=== PATIENT | female | born 1960 | race Caucasian/White ===

== ENCOUNTER 2023-04-07 23:16 | Inpatient (IN) | payer BC ==
[~2023-04-07] VITALS: Ht 167.6 cm; Wt 122.5 kg
[2023-04-08] VITALS (14 sets, daily range): BP systolic 82–128; BP diastolic 34–80; PULSE 44–100; RESP 14–26; TEMP 97.6–99; O2SAT 90–99
[2023-04-08] MEDS ORDERED: NS 1000ML 1,000 ML IV STA ×4 (00:45→03:19)
[2023-04-08] MEDS ORDERED: NS 1000ML 1,000 ML ONE ×3 (00:57→20:01)
[2023-04-08 01:28] LABS: BASOPHIL % 0.1 % (0.0-0.2); HEMATOCRIT(ML) 31.4 % (36.0-46.0); HEMOGLOBIN 10.6 g/dL (12.0-15.0); LYMPHOCYTES # 0.72 10^3/uL1 (1.0-4.8); LYMPHOCYTES % 2.1 % (24.0-44.0); MEAN CORP HGB 32.3 pg (26-34); MEAN CORP HGB CONCENTRATION 33.8 g/dL (33-36.5); MEAN CORP VOLUME 95.7 fL (78-100); MONOCYTES # 2.2 10^3/uL (0.3-0.8); MONOCYTES % 6.2 % (5.0-12.0); NEUTROPHIL # 32.2 10^3/uL (1.8-7.7); NEUTROPHILS % 91.6 % (41.0-85.0); PLATELET COUNT 358 10^3/uL (150-400); RED BLOOD CELL 3.28 10^6/uL (4.00-5.20); RED CELL DISTRIBUTION WIDTH 13.1 % (11.5-14.5)
[2023-04-08 01:36] LABS: +ADD MANUAL DIFF(NO CHRG) YES; WHITE BLOOD CELL 35.1 10^3/uL (4.5-11.0)
[2023-04-08 01:57] LABS: ALANINE AMINOTRANSFERASE(ML) 18 U/L (12-78); ALBUMIN(ML) 3.4 g/dL (3.4-5.0); ALBUMIN/GLOBULIN RATIO 0.809; ALKALINE PHOSPHATASE 86 U/L (50-136); ANION GAP 16.3; ASPARTATE AMINO TRANSFERASE 11 U/L (0-35); CALCIUM 9.6 mg/dL (8.4-10.5); CARBON DIOXIDE 24.9 mmol/L (20.0-32); CREATININE SERUM 1.43 mg/dL (0.59-1.40); EST GFR, NON-AA 37.3 (>/=60); GLUCOSE 134 mg/dL (74-106); POTASSIUM 4.2 mmol/L (3.6-5.2); SODIUM 134 mmol/L (132-145)
[2023-04-08 01:58] LABS: TROPONIN I HIGH SENSITIVITY < 4 ng/L (0-50)
[2023-04-08 02:05] LABS: BAND NEUTROPHILS 4 % (2-6); LYMPHOCYTE 1 % (25-36); MONOCYTE 6 % (3-9); SEGMENTED NEUTROPHILS 89 % (31-76); TOTAL CELLS COUNTED 100 #CELLS
[2023-04-08] MEDS ORDERED: NS 1000ML 1,000 ML IV ONE (02:05)
[2023-04-08] MEDS ORDERED: VANCOMYCIN HCL 1 GM in NS 250ML 250 ML IV STA (02:12)
[2023-04-08] MEDS ORDERED: VANCOMYCIN 1 GRAM/200 ML BAG 200 ML IV ONE (02:16)
[2023-04-08] MEDS ORDERED: NS 500ML 500 ML IV STA (02:42)
[2023-04-08] MEDS ORDERED: NS 500ML 500 ML IV ONE (02:47)
[2023-04-08 02:54] LABS: APPEARANCE,URINE CLOUDY; BILIRUBIN,URINE NEGATIVE (NEGATIVE); LEUKOCYTE ESTERASE ,URINE TRACE (NEGATIVE); NITRATE,URINE NEGATIVE (NEGATIVE); UA COLOR YELLOW; UROBILINOGEN,URINE 0.2 E.U./dL (0.2)
[2023-04-08] MEDS ORDERED: MAXIPIME 1 GM in NS 100ML 100 ML IV STA (03:09)
[2023-04-08] MEDS ORDERED: NS 100ML 100 ML IV ONE ×4 (03:18→20:41)
[2023-04-08] MEDS ORDERED: [UNRECOGNIZED DRUG - CODE] PO (03:21)
[2023-04-08] MEDS ORDERED: METO50TA6 PO (03:21)
[2023-04-08] MEDS ORDERED: CYCL10TA19 PO (03:21)
[2023-04-08] MEDS ORDERED: ROSU20TA2 PO (03:21)
[2023-04-08] MEDS ORDERED: FLUO20CA25 PO (03:21)
[2023-04-08] MEDS ORDERED: LEVO100T5 PO (03:21)
[2023-04-08] MEDS ORDERED: SPIR100T4 PO (03:21)
[2023-04-08] MEDS ORDERED: DOXE50CA PO (03:21)
[2023-04-08] MEDS ORDERED: FURO-80 PO (03:21)
[2023-04-08] MEDS ORDERED: NAPR500T8 PO (03:21)
[2023-04-08] MEDS ORDERED: APIX5TAB PO (03:21)
[2023-04-08] MEDS ORDERED: LORA10TA3 PO (03:21)
[2023-04-08] MEDS ORDERED: GABA100C7 PO (03:21)
[2023-04-08] MEDS: NS 1000ML 1,000 ML IV SCH ×3 (04:27→20:14)
[2023-04-08] MEDS: FLAGYL 500MG/ 100 ML NS 100 ML IV SCH ×3 (05:19→22:27)
[2023-04-08] MEDS: HEPARIN SQ SCH ×3 (05:19→22:27)
[2023-04-08 05:21] LABS: BASOPHIL % 0.1 % (0.0-0.2); HEMOGLOBIN 10.8 g/dL (12.0-15.0); LYMPHOCYTES # 0.91 10^3/uL1 (1.0-4.8); LYMPHOCYTES % 2.8 % (24.0-44.0); MEAN CORP HGB 32.4 pg (26-34); MEAN CORP HGB CONCENTRATION 32.7 g/dL (33-36.5); MEAN CORP VOLUME 99.1 fL (78-100); MONOCYTES # 1.3 10^3/uL (0.3-0.8); NEUTROPHIL # 30.5 10^3/uL (1.8-7.7); NEUTROPHILS % 93.1 % (41.0-85.0); PLATELET COUNT 304 10^3/uL (150-400); RED BLOOD CELL 3.33 10^6/uL (4.00-5.20); RED CELL DISTRIBUTION WIDTH 13.4 % (11.5-14.5)
[2023-04-08] MEDS: AMBIEN PO PRN (05:26)
[2023-04-08] MEDS: MOTRIN PO PRN ×2 (05:26→16:27)
[2023-04-08] MEDS ORDERED: NS 250ML 250 ML ONE (05:26)
[2023-04-08 05:31] LABS: +ADD MANUAL DIFF(NO CHRG) YES; ANION GAP 18.2; BUN/CREATININE RATIO 16.4 (10.0-20.0); CARBON DIOXIDE 24.2 mmol/L (20.0-32); CREATININE SERUM 1.28 mg/dL (0.59-1.40); EST GFR, NON-AA 42.4 (>/=60); POTASSIUM 4.4 mmol/L (3.6-5.2)
[2023-04-08 05:32] LABS: WHITE BLOOD CELL 32.7 10^3/uL (4.5-11.0)
[2023-04-08 05:36] LABS: BAND NEUTROPHILS 2 % (2-6); LYMPHOCYTE 3 % (25-36); MONOCYTE 4 % (3-9); SEGMENTED NEUTROPHILS 91 % (31-76); TOTAL CELLS COUNTED 100 #CELLS
[2023-04-08] MEDS ORDERED: VANCOMYCIN 1.25 GM/250 ML BAG 250 ML IV SCH (07:00)
[2023-04-08] MEDS ORDERED: PROTONIX PO ONE (07:53)
[2023-04-08] MEDS: PROTONIX PO SCH (07:56)
[2023-04-08] MEDS: MAXIPIME 1 GM in NS 100ML 100 ML IV SCH ×3 (07:56→21:29)
[2023-04-08] MEDS: VANCOMYCIN 1.25 GM/250 ML BAG 250 ML IV SCH ×2 (12:05→23:56)
[2023-04-08] MEDS ORDERED: DUONEB 0.5-3(2.5) MG/3 ML IH PRN (15:30)
[2023-04-09] VITALS (8 sets, daily range): BP systolic 103–132; BP diastolic 56–64; PULSE 64–98; RESP 16–20; TEMP 96.8–99; O2SAT 91–100
[2023-04-09] MEDS: MAXIPIME 1 GM in NS 100ML 100 ML IV SCH ×4 (02:47→21:06)
[2023-04-09] MEDS ORDERED: NS 100ML 100 ML IV ONE ×3 (02:48→20:19)
[2023-04-09] MEDS: MOTRIN PO PRN ×2 (02:56→13:48)
[2023-04-09] MEDS: FLAGYL 500MG/ 100 ML NS 100 ML IV SCH ×3 (05:25→22:14)
[2023-04-09] MEDS: HEPARIN SQ SCH ×3 (05:25→22:14)
[2023-04-09] MEDS: NS 1000ML 1,000 ML IV SCH ×2 (05:25→09:07)
[2023-04-09 06:56] LABS: BASOPHIL % 0.1 % (0.0-0.2); EOSINOPHIL # 0.1 10^3/uL (0.0-0.2); EOSINOPHIL % 0.4 % (0.0-5.0); HEMATOCRIT(ML) 28.3 % (36.0-46.0); HEMOGLOBIN 9.4 g/dL (12.0-15.0); IG % 0.4 % (0.00-0.50); LYMPHOCYTES # 0.98 10^3/uL1 (1.0-4.8); LYMPHOCYTES % 4.6 % (24.0-44.0); MEAN CORP HGB CONCENTRATION 33.2 g/dL (33-36.5); MEAN CORP VOLUME 99.3 fL (78-100); MONOCYTES # 1.2 10^3/uL (0.3-0.8); MONOCYTES % 5.8 % (5.0-12.0); NEUTROPHIL # 18.9 10^3/uL (1.8-7.7); NEUTROPHILS % 88.7 % (41.0-85.0); RED BLOOD CELL 2.85 10^6/uL (4.00-5.20); RED CELL DISTRIBUTION WIDTH 13.8 % (11.5-14.5); WHITE BLOOD CELL 21.3 10^3/uL (4.5-11.0)
[2023-04-09 07:14] LABS: ALBUMIN(ML) 2.6 g/dL (3.4-5.0); ALBUMIN/GLOBULIN RATIO 0.634; BUN/CREATININE RATIO 19.09 (10.0-20.0); CALCIUM 8.8 mg/dL (8.4-10.5); CARBON DIOXIDE 21.9 mmol/L (20.0-32); CREATININE SERUM 1.1 mg/dL (0.59-1.40); EST GFR, NON-AA 50.5 (>/=60); POTASSIUM 3.9 mmol/L (3.6-5.2)
[2023-04-09] MEDS: PROTONIX PO SCH (09:07)
[2023-04-09] MEDS: ZOFRAN IV PRN (09:08)
[2023-04-09] MEDS: VANCOMYCIN 1.25 GM/250 ML BAG 250 ML IV SCH (13:47)
[2023-04-09] MEDS: TYLENOL #3 PO PRN (15:40)
[2023-04-10] VITALS (8 sets, daily range): BP systolic 125–143; BP diastolic 63–75; PULSE 63–88; RESP 14–20; TEMP 97–98.1; O2SAT 92–98
[2023-04-10] MEDS: VANCOMYCIN 1.25 GM/250 ML BAG 250 ML IV SCH ×2 (00:24→12:36)
[2023-04-10] MEDS: TYLENOL #3 PO PRN ×3 (00:30→21:42)
[2023-04-10] MEDS: ZOFRAN IV PRN ×2 (00:30→09:38)
[2023-04-10] MEDS: AMBIEN PO PRN (00:30)
[2023-04-10] MEDS: MAXIPIME 1 GM in NS 100ML 100 ML IV SCH ×4 (03:00→21:32)
[2023-04-10] MEDS ORDERED: NS 100ML 100 ML IV ONE ×4 (03:01→21:28)
[2023-04-10] MEDS: FLAGYL 500MG/ 100 ML NS 100 ML IV SCH (05:54)
[2023-04-10] MEDS: HEPARIN SQ SCH ×3 (05:54→21:42)
[2023-04-10 07:27] LABS: +ADD MANUAL DIFF(NO CHRG) NO; BASOPHIL % 0.3 % (0.0-0.2); EOSINOPHIL # 0.5 10^3/uL (0.0-0.2); EOSINOPHIL % 3.1 % (0.0-5.0); HEMATOCRIT(ML) 28.9 % (36.0-46.0); HEMOGLOBIN 9.2 g/dL (12.0-15.0); LYMPHOCYTES # 1.15 10^3/uL1 (1.0-4.8); LYMPHOCYTES % 7.8 % (24.0-44.0); MEAN CORP HGB 31.6 pg (26-34); MEAN CORP HGB CONCENTRATION 31.8 g/dL (33-36.5); MEAN CORP VOLUME 99.3 fL (78-100); MONOCYTES # 1.4 10^3/uL (0.3-0.8); MONOCYTES % 9.3 % (5.0-12.0); NEUTROPHIL # 11.6 10^3/uL (1.8-7.7); PLATELET COUNT 246 10^3/uL (150-400); RED BLOOD CELL 2.91 10^6/uL (4.00-5.20); RED CELL DISTRIBUTION WIDTH 13.8 % (11.5-14.5); WHITE BLOOD CELL 14.7 10^3/uL (4.5-11.0)
[2023-04-10 07:48] LABS: ALBUMIN(ML) 2.6 g/dL (3.4-5.0); ALBUMIN/GLOBULIN RATIO 0.59; ANION GAP 13.5; BUN/CREATININE RATIO 17.75 (10.0-20.0); CALCIUM 8.8 mg/dL (8.4-10.5); CARBON DIOXIDE 22.8 mmol/L (20.0-32); CREATININE SERUM 1.07 mg/dL (0.59-1.40); EST GFR, NON-AA 52.1 (>/=60); POTASSIUM 3.3 mmol/L (3.6-5.2)
[2023-04-10] MEDS: PROTONIX PO SCH (09:38)
[2023-04-10] MEDS ORDERED: KLOR-CON 10 PO ONE ×2 (13:00→14:16)
[2023-04-10] MEDS: SUBLIMAZE 100MCG/2ML IV PRN (14:19)
[2023-04-10] MEDS ORDERED: BENADRYL PO STA (18:37)
[2023-04-10] MEDS ORDERED: BENADRYL PO ONE (21:27)
[2023-04-10] MEDS: FLAGYL PO SCH (21:32)
[2023-04-10] MEDS: KLOR-CON 10 PO SCH (21:32)
[2023-04-11] VITALS (8 sets, daily range): BP systolic 110–135; BP diastolic 58–72; PULSE 63–82; RESP 18–21; TEMP 97.4–98.9; O2SAT 95–99
[2023-04-11] MEDS: SUBLIMAZE 100MCG/2ML IV PRN ×4 (00:34→20:34)
[2023-04-11] MEDS ORDERED: NS 100ML 100 ML IV ONE ×4 (02:44→19:53)
[2023-04-11] MEDS: MAXIPIME 1 GM in NS 100ML 100 ML IV SCH ×4 (02:47→20:34)
[2023-04-11] MEDS: HEPARIN SQ SCH ×3 (05:23→21:29)
[2023-04-11] MEDS: TYLENOL #3 PO PRN ×2 (05:37→18:04)
[2023-04-11 07:45] LABS: BASOPHIL # 0.1 10^3/uL (0.0-0.1); BASOPHIL % 0.4 % (0.0-0.2); EOSINOPHIL # 0.5 10^3/uL (0.0-0.2); EOSINOPHIL % 3.9 % (0.0-5.0); HEMATOCRIT(ML) 28.6 % (36.0-46.0); HEMOGLOBIN 9.4 g/dL (12.0-15.0); LYMPHOCYTES # 1.47 10^3/uL1 (1.0-4.8); LYMPHOCYTES % 11.8 % (24.0-44.0); MEAN CORP HGB 32.1 pg (26-34); MEAN CORP HGB CONCENTRATION 32.9 g/dL (33-36.5); MEAN CORP VOLUME 97.6 fL (78-100); MONOCYTES # 1.8 10^3/uL (0.3-0.8); MONOCYTES % 14.3 % (5.0-12.0); NEUTROPHIL # 8.5 10^3/uL (1.8-7.7); NEUTROPHILS % 68.6 % (41.0-85.0); PLATELET COUNT 309 10^3/uL (150-400); RED BLOOD CELL 2.93 10^6/uL (4.00-5.20); RED CELL DISTRIBUTION WIDTH 13.9 % (11.5-14.5); WHITE BLOOD CELL 12.5 10^3/uL (4.5-11.0)
[2023-04-11 07:51] LABS: +ADD MANUAL DIFF(NO CHRG) NO
[2023-04-11 07:53] LABS: ALBUMIN(ML) 2.6 g/dL (3.4-5.0); ALBUMIN/GLOBULIN RATIO 0.565; ANION GAP 14.1; BUN/CREATININE RATIO 10.41 (10.0-20.0); CALCIUM 9.3 mg/dL (8.4-10.5); CARBON DIOXIDE 23.4 mmol/L (20.0-32); CREATININE SERUM 0.96 mg/dL (0.59-1.40); EST GFR, NON-AA 59.1 (>/=60); POTASSIUM 3.5 mmol/L (3.6-5.2)
[2023-04-11] MEDS: PROTONIX PO SCH (09:52)
[2023-04-11] MEDS: FLAGYL PO SCH ×2 (09:52→20:34)
[2023-04-11] MEDS: KLOR-CON 10 PO SCH (09:53)
[2023-04-11] MEDS ORDERED: LASIX IV STA (16:17)
[2023-04-11 17:32] LABS: TROPONIN I HIGH SENSITIVITY < 4 ng/L (0-50)
[2023-04-11] MEDS ORDERED: KLOR-CON 10 PO ONE (18:00)
[2023-04-11] MEDS ORDERED: LASIX ONE (18:02)
[2023-04-12] VITALS (8 sets, daily range): BP systolic 99–143; BP diastolic 52–66; PULSE 64–77; RESP 17–19; TEMP 97.4–98.3; O2SAT 92–97
[2023-04-12] MEDS ORDERED: NS 100ML 100 ML IV ONE ×5 (01:44→21:18)
[2023-04-12] MEDS: MAXIPIME 1 GM in NS 100ML 100 ML IV SCH ×4 (02:28→21:27)
[2023-04-12] MEDS: HEPARIN SQ SCH (06:00)
[2023-04-12 06:56] LABS: HEMATOCRIT(ML) 30.2 % (36.0-46.0); HEMOGLOBIN 9.8 g/dL (12.0-15.0); MEAN CORP HGB 31.8 pg (26-34); MEAN CORP HGB CONCENTRATION 32.5 g/dL (33-36.5); MEAN CORP VOLUME 98.1 fL (78-100); RED BLOOD CELL 3.08 10^6/uL (4.00-5.20); WHITE BLOOD CELL 15.4 10^3/uL (4.5-11.0)
[2023-04-12 07:05] LABS: ANION GAP 14.5; BUN/CREATININE RATIO 12.03 (10.0-20.0); CALCIUM 9.7 mg/dL (8.4-10.5); CARBON DIOXIDE 26.1 mmol/L (20.0-32); CREATININE SERUM 1.08 mg/dL (0.59-1.40); EST GFR, NON-AA 51.6 (>/=60); POTASSIUM 3.6 mmol/L (3.6-5.2)
[2023-04-12] MEDS: KLOR-CON 10 PO SCH (09:42)
[2023-04-12] MEDS: PROTONIX PO SCH (09:42)
[2023-04-12] MEDS: FLAGYL PO SCH ×2 (09:42→21:27)
[2023-04-12] MEDS: TYLENOL #3 PO PRN ×2 (09:53→21:28)
[2023-04-12 10:03] LABS: LDL/HDL RATIO 1.7
[2023-04-12] MEDS: ZOFRAN IV PRN ×2 (14:41→21:28)
[2023-04-12] MEDS: SUBLIMAZE 100MCG/2ML IV PRN (14:41)
[2023-04-12] MEDS: LIPITOR PO SCH (21:27)
[2023-04-12] MEDS ORDERED: BENADRYL PO ONE (21:50)
[2023-04-12] MEDS ORDERED: BENADRYL PO PRN (22:00)
[2023-04-13] VITALS (11 sets, daily range): BP systolic 98–127; BP diastolic 48–68; PULSE 58–77; RESP 18–20; TEMP 97.1–98.5; O2SAT 90–96
[2023-04-13] MEDS ORDERED: NS 100ML 100 ML IV ONE ×4 (02:55→21:34)
[2023-04-13] MEDS: MAXIPIME 1 GM in NS 100ML 100 ML IV SCH ×4 (02:58→21:35)
[2023-04-13] MEDS: ZOFRAN IV PRN ×4 (03:09→22:35)
[2023-04-13] MEDS: TYLENOL #3 PO PRN ×4 (03:09→22:35)
[2023-04-13 06:34] LABS: HEMATOCRIT(ML) 23.5 % (36.0-46.0); HEMOGLOBIN 7.7 g/dL (12.0-15.0); MEAN CORP HGB 32.5 pg (26-34); MEAN CORP HGB CONCENTRATION 32.8 g/dL (33-36.5); MEAN CORP VOLUME 99.2 fL (78-100); RED BLOOD CELL 2.37 10^6/uL (4.00-5.20); RED CELL DISTRIBUTION WIDTH 13.8 % (11.5-14.5); WHITE BLOOD CELL 17.1 10^3/uL (4.5-11.0)
[2023-04-13 06:43] LABS: ANION GAP 9.2; CARBON DIOXIDE 29.6 mmol/L (20.0-32); EST GFR, NON-AA 56.4 (>/=60); POTASSIUM 3.8 mmol/L (3.6-5.2)
[2023-04-13] MEDS: SUBLIMAZE 100MCG/2ML IV PRN (07:45)
[2023-04-13] MEDS ORDERED: XYLOCAINE ONE (08:28)
[2023-04-13] MEDS ORDERED: SUBLIMAZE 100MCG/2ML ONE (08:28)
[2023-04-13] MEDS ORDERED: VERSED ONE (08:28)
[2023-04-13] MEDS: ALDACTONE PO SCH (09:56)
[2023-04-13] MEDS: PROTONIX PO SCH (09:56)
[2023-04-13] MEDS: FLAGYL PO SCH ×2 (09:57→21:35)
[2023-04-13] MEDS: KLOR-CON 10 PO SCH (09:57)
[2023-04-13] MEDS: TOPROL-XL PO SCH (09:58)
[2023-04-13] MEDS: DEMADEX PO SCH (09:58)
[2023-04-13] MEDS: LIPITOR PO SCH (21:35)
[2023-04-14] VITALS (8 sets, daily range): BP systolic 121–127; BP diastolic 56–87; PULSE 58–84; RESP 18–19; TEMP 97–98.3; O2SAT 91–95
[2023-04-14] MEDS: MAXIPIME 1 GM in NS 100ML 100 ML IV SCH ×2 (03:16→09:01)
[2023-04-14] MEDS ORDERED: NS 100ML 100 ML IV ONE ×2 (03:16→08:59)
[2023-04-14] MEDS ORDERED: NS 250ML 250 ML ONE ×2 (05:40→09:00)
[2023-04-14 06:19] LABS: ANION GAP 9.1; BUN/CREATININE RATIO 14.63 (10.0-20.0); CALCIUM 9.6 mg/dL (8.4-10.5); CARBON DIOXIDE 31.4 mmol/L (20.0-32); CREATININE SERUM 1.23 mg/dL (0.59-1.40); EST GFR, NON-AA 44.4 (>/=60); POTASSIUM 3.5 mmol/L (3.6-5.2)
[2023-04-14 06:21] LABS: BASOPHIL # 0.1 10^3/uL (0.0-0.1); BASOPHIL % 0.7 % (0.0-0.2); EOSINOPHIL # 0.5 10^3/uL (0.0-0.2); EOSINOPHIL % 2.9 % (0.0-5.0); HEMATOCRIT(ML) 29.6 % (36.0-46.0); HEMOGLOBIN 9.7 g/dL (12.0-15.0); LYMPHOCYTES # 1.94 10^3/uL1 (1.0-4.8); LYMPHOCYTES % 11.8 % (24.0-44.0); MEAN CORP HGB 32.4 pg (26-34); MEAN CORP HGB CONCENTRATION 32.8 g/dL (33-36.5); MONOCYTES % 12.2 % (5.0-12.0); NEUTROPHIL # 10.5 10^3/uL (1.8-7.7); NEUTROPHILS % 64.1 % (41.0-85.0); PLATELET COUNT 482 10^3/uL (150-400); RED BLOOD CELL 2.99 10^6/uL (4.00-5.20); RED CELL DISTRIBUTION WIDTH 13.9 % (11.5-14.5); WHITE BLOOD CELL 16.4 10^3/uL (4.5-11.0)
[2023-04-14 06:38] LABS: +ADD MANUAL DIFF(NO CHRG) YES
[2023-04-14 08:02] LABS: BAND NEUTROPHILS 2 % (2-6); SEGMENTED NEUTROPHILS 72 % (31-76); TOTAL CELLS COUNTED 100 #CELLS
[2023-04-14 08:03] LABS: EOSINOPHIL 1 % (1-4); LYMPHOCYTE 10 % (25-36); MONOCYTE 12 % (3-9); MYELOCYTES 2 %
[2023-04-14 08:04] LABS: NUCLEATED RED BLOOD CELLS 1 % (0-0); POIKILOCYTOSIS 1+ (NEGATIVE); TOXIC GRANULATION 2+ (NEGATIVE)
[2023-04-14] MEDS: FLAGYL PO SCH (09:01)
[2023-04-14] MEDS: PROTONIX PO SCH (09:01)
[2023-04-14] MEDS: KLOR-CON 10 PO SCH (09:01)
[2023-04-14] MEDS: DEMADEX PO SCH (09:01)
[2023-04-14] MEDS: TOPROL-XL PO SCH (09:02)
[2023-04-14] MEDS: ALDACTONE PO SCH (09:02)
[2023-04-14] MEDS: TYLENOL #3 PO PRN ×2 (09:11→19:39)
[2023-04-14] MEDS ORDERED: KCL 20 MEQ/100 ML IV ONE (09:30)
[2023-04-14] MEDS: AUGMENTIN 875MG PO SCH ×2 (12:55→20:14)
[2023-04-14] MEDS: ZOFRAN IV PRN ×2 (14:48→19:39)
[2023-04-14] MEDS ORDERED: ELIQUIS ONE (19:38)
[2023-04-14] MEDS: LIPITOR PO SCH (20:14)
[2023-04-14] MEDS: ELIQUIS PO SCH (20:14)
[2023-04-15 04:22] VITALS: BP 147/73; PULSE 60; RESP 18; TEMP 97.7; O2SAT 91
[2023-04-15] MEDS: TYLENOL #3 PO PRN ×3 (06:55→20:49)
[2023-04-15 07:38] VITALS: BP 119/63; PULSE 73; RESP 17; TEMP 97.8; O2SAT 93
[2023-04-15] MEDS: ALDACTONE PO SCH (08:45)
[2023-04-15] MEDS: AUGMENTIN 875MG PO SCH ×2 (08:45→20:49)
[2023-04-15] MEDS: ELIQUIS PO SCH ×2 (08:45→20:49)
[2023-04-15] MEDS: DEMADEX PO SCH (08:45)
[2023-04-15] MEDS: KLOR-CON 10 PO SCH (08:46)
[2023-04-15] MEDS: TOPROL-XL PO SCH (08:46)
[2023-04-15] MEDS: PROTONIX PO SCH (08:46)
[2023-04-15] MEDS: COZAAR PO SCH (08:46)
[2023-04-15 10:47] LABS: BASOPHIL # 0.1 10^3/uL (0.0-0.1); BASOPHIL % 0.4 % (0.0-0.2); EOSINOPHIL # 0.4 10^3/uL (0.0-0.2); EOSINOPHIL % 2.2 % (0.0-5.0); HEMOGLOBIN 10.3 g/dL (12.0-15.0); LYMPHOCYTES # 2.37 10^3/uL1 (1.0-4.8); LYMPHOCYTES % 13.3 % (24.0-44.0); MEAN CORP HGB 31.8 pg (26-34); MEAN CORP HGB CONCENTRATION 32.2 g/dL (33-36.5); MEAN CORP VOLUME 98.8 fL (78-100); MONOCYTES # 2.1 10^3/uL (0.3-0.8); MONOCYTES % 11.7 % (5.0-12.0); NEUTROPHIL # 11.4 10^3/uL (1.8-7.7); NEUTROPHILS % 63.9 % (41.0-85.0); PLATELET COUNT 566 10^3/uL (150-400); RED BLOOD CELL 3.24 10^6/uL (4.00-5.20); RED CELL DISTRIBUTION WIDTH 13.8 % (11.5-14.5); WHITE BLOOD CELL 17.8 10^3/uL (4.5-11.0)
[2023-04-15 10:58] LABS: +ADD MANUAL DIFF(NO CHRG) YES
[2023-04-15 11:04] LABS: ALBUMIN(ML) 2.8 g/dL (3.4-5.0); ALBUMIN/GLOBULIN RATIO 0.538; ANION GAP 10.5; BUN/CREATININE RATIO 12.94 (10.0-20.0); CALCIUM 9.3 mg/dL (8.4-10.5); CARBON DIOXIDE 30.4 mmol/L (20.0-32); CREATININE SERUM 1.39 mg/dL (0.59-1.40); EST GFR, NON-AA 38.5 (>/=60); POTASSIUM 3.9 mmol/L (3.6-5.2)
[2023-04-15 11:51] LABS: BAND NEUTROPHILS 6 % (2-6); EOSINOPHIL 1 % (1-4); LYMPHOCYTE 14 % (25-36); MONOCYTE 7 % (3-9); MYELOCYTES 2 %; PROMYELOCYTES 1 %; SEGMENTED NEUTROPHILS 67 % (31-76); TOTAL CELLS COUNTED 100 #CELLS
[2023-04-15 11:52] LABS: ANISOCYTOSIS 1+ (NEGATIVE); POIKILOCYTOSIS 1+ (NEGATIVE); POLYCHROMASIA 1+ (NEGATIVE); TOXIC GRANULATION 2+ (NEGATIVE)
[2023-04-15 12:00] VITALS: BP 133/55; PULSE 85; RESP 18; TEMP 96.9; O2SAT 97
[2023-04-15 16:00] VITALS: BP 109/61; PULSE 68; RESP 18; TEMP 97.9; O2SAT 0
[2023-04-15 19:30] VITALS: BP 119/68; PULSE 74; RESP 19; TEMP 96.5; O2SAT 96
[2023-04-15] MEDS: LIPITOR PO SCH (20:49)
[2023-04-15] MEDS: ZOFRAN IV PRN (20:57)
[2023-04-16 00:05] VITALS: BP 111/63; PULSE 63; RESP 18; TEMP 97; O2SAT 93
[2023-04-16 04:00] VITALS: BP 122/57; PULSE 67; RESP 18; TEMP 97.6; O2SAT 92
[2023-04-16] MEDS: TYLENOL #3 PO PRN (04:23)
[2023-04-16 04:59] LABS: BASOPHIL # 0.1 10^3/uL (0.0-0.1); BASOPHIL % 0.5 % (0.0-0.2); EOSINOPHIL # 0.4 10^3/uL (0.0-0.2); EOSINOPHIL % 2.1 % (0.0-5.0); HEMATOCRIT(ML) 30.8 % (36.0-46.0); LYMPHOCYTES # 2.75 10^3/uL1 (1.0-4.8); LYMPHOCYTES % 14.4 % (24.0-44.0); MEAN CORP HGB 32.4 pg (26-34); MEAN CORP HGB CONCENTRATION 32.5 g/dL (33-36.5); MEAN CORP VOLUME 99.7 fL (78-100); MONOCYTES % 10.4 % (5.0-12.0); NEUTROPHIL # 12.6 10^3/uL (1.8-7.7); NEUTROPHILS % 65.8 % (41.0-85.0); PLATELET COUNT 573 10^3/uL (150-400); RED BLOOD CELL 3.09 10^6/uL (4.00-5.20); RED CELL DISTRIBUTION WIDTH 13.7 % (11.5-14.5); WHITE BLOOD CELL 19.2 10^3/uL (4.5-11.0)
[2023-04-16 05:07] LABS: +ADD MANUAL DIFF(NO CHRG) YES
[2023-04-16 05:17] LABS: ALBUMIN(ML) 2.6 g/dL (3.4-5.0); ALBUMIN/GLOBULIN RATIO 0.541; ANION GAP 10.6; BUN/CREATININE RATIO 13.84 (10.0-20.0); CALCIUM 8.9 mg/dL (8.4-10.5); CREATININE SERUM 1.3 mg/dL (0.59-1.40); EST GFR, NON-AA 41.6 (>/=60); POTASSIUM 3.6 mmol/L (3.6-5.2)
[2023-04-16 05:33] LABS: BAND NEUTROPHILS 2 % (2-6); EOSINOPHIL 4 % (1-4); LYMPHOCYTE 15 % (25-36); MONOCYTE 6 % (3-9); MYELOCYTES 1 %; SEGMENTED NEUTROPHILS 68 % (31-76); TOTAL CELLS COUNTED 100 #CELLS
[2023-04-16 08:39] VITALS: BP 118/56; PULSE 67; RESP 18; TEMP 98.2; O2SAT 93
[2023-04-16] MEDS: ALDACTONE PO SCH (09:26)
[2023-04-16] MEDS: KLOR-CON 10 PO SCH (09:26)
[2023-04-16] MEDS: COZAAR PO SCH (09:26)
[2023-04-16] MEDS: DEMADEX PO SCH (09:26)
[2023-04-16] MEDS: AUGMENTIN 875MG PO SCH (09:26)
[2023-04-16] MEDS: PROTONIX PO SCH (09:26)
[2023-04-16] MEDS: ELIQUIS PO SCH (09:26)
[2023-04-16] MEDS: TOPROL-XL PO SCH (09:26)
[2023-04-16] MEDS: SUBLIMAZE 100MCG/2ML IV PRN (11:15)
[2023-04-16] MEDS ORDERED: LINE600T12 PO (11:21)
[2023-04-16] MEDS ORDERED: CEFD300C2 PO (11:21)
[2023-04-16] MEDS ORDERED: SPIR25TA PO (11:21)
[2023-04-16] MEDS ORDERED: LOSA25TA12 PO (11:21)
[2023-04-16] MEDS ORDERED: TORS20TA2 PO (11:21)
[2023-04-16] MEDS ORDERED: METO-236 PO (11:21)
[2023-04-16 12:12] VITALS: BP 106/48; PULSE 68; RESP 18; TEMP 98.3; O2SAT 91
[2023-04-16] MEDS ORDERED: DOXY100C5 PO (15:31)
[2023-04-16 15:35] VITALS: BP 106/48; PULSE 68; RESP 18; TEMP 98.3; O2SAT 91
== END 2023-04-16 13:35 | disposition home or self-care (01) | DRG 853 ==
LOC: ER 23:16 → ICU 04-08 03:05 → MS 04-08 20:12
PROVIDERS: ADMIT Internal Medicine; ATTEND Internal Medicine
PROC: 0JH632Z Insertion of Monitoring Device into Chest Subcutaneous Tissue and Fascia, Percutaneous Approach (ICD-10-PCS; principal; 2023-04-13 09:00)
DX: A41.9 Sepsis, unspecified organism (principal); I50.33 Acute on chronic diastolic (congestive) heart failure; I13.0 Hypertensive heart and chronic kidney disease with heart failure and stage 1 through stage 4 chronic kidney disease, or unspecified chronic kidney disease; L03.311 Cellulitis of abdominal wall; N17.9 Acute kidney failure, unspecified; E87.20 Acidosis, unspecified; Z68.41 Body mass index [BMI] 40.0-44.9, adult; I48.0 Paroxysmal atrial fibrillation; G47.00 Insomnia, unspecified; D64.9 Anemia, unspecified; E86.0 Dehydration; E86.1 Hypovolemia; N18.30 Chronic kidney disease, stage 3 unspecified; I87.8 Other specified disorders of veins; E66.01 Morbid (severe) obesity due to excess calories; Z79.01 Long term (current) use of anticoagulants; Z79.899 Other long term (current) drug therapy; Z88.5 Allergy status to narcotic agent; Z88.6 Allergy status to analgesic agent; Z90.710 Acquired absence of both cervix and uterus; Z95.0 Presence of cardiac pacemaker
CPT/HCPCS: 33285; 36415; 70450; 71045; 80048; 80053; 80061; 80202; 81001; 83605; 83735; 83880; 84145; 84443; 84484; 85025; 85027; 85379; 87040; 87086; 93005; 93306; 94640; 97161; 97165; 99152; 99285; A6258; A6456; A9270; C1764; G0378; J0692; J1644; J1940; J2250; J2405; J3010; J3370; J3480; J3490; J7030; J7040; J7050; Q0163

== ENCOUNTER 2023-05-09 15:08 | Inpatient (IN) | payer BC ==
[~2023-05-09] VITALS: Ht 167.6 cm; Wt 125.2 kg
[~2023-05-09 15:08] MED LIST: ACET1TAB57 PO; APIX5TAB PO; CEFD300C2 PO; CYCL10TA19 PO; DOXE50CA PO; DOXY100C5 PO; DULO30CA2 PO; FLUO20CA25 PO; FURO-80 PO; Fentanyl TD; GABA100C7 PO; LEVO100T5 PO; LINE600T12 PO; LORA10TA3 PO; LORA10TA75 PO; LOSA25TA12 PO; METO-236 PO; METO50TA6 PO; MUPI1OIN6 TP; NAPR500T8 PO; ROSU20TA2 PO; SPIR100T4 PO; SPIR25TA PO; SULF1TAB24 PO; TORS20TA2 PO; [UNRECOGNIZED DRUG - CODE] PO
[2023-05-09 16:50] VITALS: PULSE 76
[2023-05-09] MEDS ORDERED: NS 100ML 100 ML IV ONE (19:41)
[2023-05-09] MEDS ORDERED: LASIX ONE (19:41)
[2023-05-09] MEDS ORDERED: NEURONTIN ONE (19:42)
[2023-05-09 19:54] VITALS: BP 132/63; PULSE 93; RESP 18; TEMP 98.1; O2SAT 93
[2023-05-09] MEDS: ZOSYN 3.375 GM 3.375 GM in NS 100ML 100 ML IV SCH (19:57)
[2023-05-09] MEDS: LASIX PO SCH (19:58)
[2023-05-09] MEDS: FLEXERIL PO SCH (20:03)
[2023-05-09] MEDS: ELIQUIS PO SCH (20:03)
[2023-05-09] MEDS: TYLENOL #3 PO SCH (20:03)
[2023-05-09] MEDS: NEURONTIN PO SCH (20:03)
[2023-05-09] MEDS ORDERED: NS 500ML 500 ML IV ONE (21:40)
[2023-05-09] MEDS ORDERED: VANCOMYCIN 750 MG/150 ML BAG 150 ML IV ONE (21:40)
[2023-05-09] MEDS: NS IV ONE (21:42)
[2023-05-09] MEDS: VANCOMYCIN HCL IV ONE (21:42)
[2023-05-10] MEDS ORDERED: NS 100ML 100 ML IV ONE ×4 (01:21→20:06)
[2023-05-10] MEDS: VANCOMYCIN 750 MG/150 ML BAG 150 ML IV ONE (08:31)
[2023-05-10 08:41] VITALS: BP 92/43; PULSE 68; RESP 19; TEMP 97.7; O2SAT 92
[2023-05-10] MEDS: CLARITIN PO SCH (09:00)
[2023-05-10] MEDS: SYNTHROID PO SCH (09:00)
[2023-05-10] MEDS: KLOR-CON 10 PO SCH (09:00)
[2023-05-10] MEDS: TOPROL-XL PO SCH (09:00)
[2023-05-10] MEDS: ALDACTONE PO SCH (09:00)
[2023-05-10] MEDS: LASIX PO SCH (09:00)
[2023-05-10] MEDS: COZAAR PO SCH (09:00)
[2023-05-10] MEDS: NEURONTIN PO SCH (09:00)
[2023-05-10] MEDS: CYMBALTA PO SCH (09:00)
[2023-05-10] MEDS: CRESTOR PO SCH (09:00)
[2023-05-10] MEDS: ZOSYN 3.375 GM 3.375 GM in NS 100ML 100 ML IV SCH (09:00)
[2023-05-10 18:57] VITALS: BP 106/56; PULSE 75; RESP 18; TEMP 97.7; O2SAT 93
[2023-05-11] MEDS ORDERED: NS 100ML 100 ML IV ONE ×4 (01:51→20:11)
[2023-05-11 07:46] VITALS: BP 111/57; PULSE 81; RESP 13; TEMP 98; O2SAT 92
[2023-05-11] MEDS: DURAGESIC 25MCG TD SCH (12:30)
[2023-05-11] MEDS ORDERED: VANCOMYCIN 1 GRAM/200 ML BAG 200 ML IV ONE (14:04)
[2023-05-11] MEDS: VANCOMYCIN 1 GRAM/200 ML BAG 200 ML IV SCH (14:06)
[2023-05-11] MEDS: BENADRYL PO STA (17:57)
[2023-05-11 19:15] VITALS: BP 102/58; PULSE 66; RESP 20; TEMP 97.5; O2SAT 90
[2023-05-11 19:53] LABS: ABG OX -sO2 95.3 % (94.0-97.00); ABG PCO2 41.9 mmHg (35.0-45.0); ABG PH 7.443 (7.350-7.450); BE(B) 3.6 mmol/L (-2.0-2.0); pO2 83.1 mmHg (80.0-100.0)
[2023-05-11 20:30] VITALS: PULSE 66; RESP 16; O2SAT 96
[2023-05-12] MEDS ORDERED: NS 100ML 100 ML IV ONE ×4 (02:00→21:13)
[2023-05-12 03:55] VITALS: BP 115/63; PULSE 70; RESP 20; TEMP 97.8; O2SAT 91
[2023-05-12 07:58] VITALS: PULSE 70; RESP 18; O2SAT 94
[2023-05-12 08:44] VITALS: PULSE 82; RESP 21; O2SAT 95
[2023-05-12] MEDS: TYLENOL PO PRN (09:35)
[2023-05-12 20:07] VITALS: BP 113/61; PULSE 67; RESP 18; TEMP 97.2; O2SAT 96
[2023-05-12 21:16] VITALS: PULSE 68; RESP 18; O2SAT 91
[2023-05-13] MEDS ORDERED: NS 100ML 100 ML IV ONE ×4 (03:59→22:00)
[2023-05-13 09:00] VITALS: BP 106/52; PULSE 68; PULSE 78; RESP 18; TEMP 97.6; O2SAT 91
[2023-05-13 13:09] LABS: BASOPHIL # 0.1 10^3/uL (0.0-0.1); BASOPHIL % 0.5 % (0.0-0.2); EOSINOPHIL # 2.7 10^3/uL (0.0-0.2); EOSINOPHIL % 18.5 % (0.0-5.0); HEMATOCRIT(ML) 29.7 % (36.0-46.0); HEMOGLOBIN 9.4 g/dL (12.0-15.0); LYMPHOCYTES # 1.97 10^3/uL1 (1.0-4.8); LYMPHOCYTES % 13.7 % (24.0-44.0); MEAN CORP HGB 31.9 pg (26-34); MEAN CORP HGB CONCENTRATION 31.6 g/dL (33-36.5); MEAN CORP VOLUME 100.7 fL (78-100); MONOCYTES # 1.1 10^3/uL (0.3-0.8); MONOCYTES % 7.9 % (5.0-12.0); NEUTROPHIL # 8.4 10^3/uL (1.8-7.7); NEUTROPHILS % 58.4 % (41.0-85.0); PLATELET COUNT 401 10^3/uL (150-400); RED BLOOD CELL 2.95 10^6/uL (4.00-5.20); RED CELL DISTRIBUTION WIDTH 14.8 % (11.5-14.5); WHITE BLOOD CELL 14.4 10^3/uL (4.5-11.0)
[2023-05-13 13:16] LABS: +ADD MANUAL DIFF(NO CHRG) YES
[2023-05-13 13:44] LABS: BAND NEUTROPHILS 1 % (2-6); EOSINOPHIL 18 % (1-4); LYMPHOCYTE 6 % (25-36); MONOCYTE 10 % (3-9); SEGMENTED NEUTROPHILS 65 % (31-76); TOTAL CELLS COUNTED 100 #CELLS
[2023-05-13 13:45] LABS: ALBUMIN(ML) 2.7 g/dL (3.4-5.0); ALBUMIN/GLOBULIN RATIO 0.519; ANION GAP 11.2; BUN/CREATININE RATIO 8.59 (10.0-20.0); CALCIUM 9.2 mg/dL (8.4-10.5); CARBON DIOXIDE 33.3 mmol/L (20.0-32); CREATININE SERUM 1.28 mg/dL (0.59-1.40); EST GFR, NON-AA 42.4 (>/=60); POTASSIUM 3.5 mmol/L (3.6-5.2)
[2023-05-13 13:45] LABS: POLYCHROMASIA 1+ (NEGATIVE)
[2023-05-13 20:20] VITALS: BP 101/47; PULSE 75; RESP 17; TEMP 98.1; O2SAT 93
[2023-05-13 21:08] VITALS: PULSE 75; RESP 20; O2SAT 92
[2023-05-14] MEDS ORDERED: NS 100ML 100 ML IV ONE ×2 (02:28→19:44)
[2023-05-14] MEDS ORDERED: NS 500ML 500 ML IV ONE (02:35)
[2023-05-14 07:45] VITALS: BP 118/56; PULSE 73; RESP 19; TEMP 97.2; O2SAT 96
[2023-05-14 09:41] VITALS: PULSE 75; RESP 20; O2SAT 92
[2023-05-14 19:22] VITALS: BP 102/47; PULSE 77; RESP 20; TEMP 97.1; O2SAT 99
[2023-05-14 20:44] VITALS: PULSE 73; RESP 20; O2SAT 96
[2023-05-15] MEDS ORDERED: NS 100ML 100 ML IV ONE ×2 (02:29→09:02)
[2023-05-15 08:16] VITALS: BP 97/57; PULSE 69; RESP 13; TEMP 96.9; O2SAT 90
[2023-05-15] MEDS: KLOR-CON 10 PO SCH (09:07)
[2023-05-15 10:03] VITALS: BP 122/59
[2023-05-15] MEDS ORDERED: POTA-129 PO (10:17)
== END 2023-05-15 14:00 | DRG 603 ==
LOC: SBU 15:08
PROVIDERS: ADMIT Specialist; ATTEND Specialist
DX: L03.115 Cellulitis of right lower limb (principal); I50.32 Chronic diastolic (congestive) heart failure; N17.9 Acute kidney failure, unspecified; Z68.41 Body mass index [BMI] 40.0-44.9, adult; I11.0 Hypertensive heart disease with heart failure; L03.116 Cellulitis of left lower limb; I48.0 Paroxysmal atrial fibrillation; E66.9 Obesity, unspecified; G89.4 Chronic pain syndrome; Z79.01 Long term (current) use of anticoagulants; Z79.899 Other long term (current) drug therapy
CPT/HCPCS: 36415; 36600; 80053; 80202; 82803; 82948; 83880; 85025; 97161; A6222; A6456; J1940; J2543; J3371; J3490; J7040; J7050; J8499; Q0163

== ENCOUNTER → 2023-07-13 | Outpatient (CLI) | payer BC ==
[~2023-07-13] MED LIST changes: +POTA-129 PO
== END | disposition home or self-care (01) ==
LOC: RAD 08:36
PROVIDERS: ATTEND Specialist
DX: I11.0 Hypertensive heart disease with heart failure (principal); I50.32 Chronic diastolic (congestive) heart failure; I48.0 Paroxysmal atrial fibrillation; G89.29 Other chronic pain; E03.9 Hypothyroidism, unspecified
CPT/HCPCS: 78452; A9500

== ENCOUNTER 2023-10-27 08:54 | Observation (INO) | payer BC ==
[2023-10-27] VITALS (9 sets, daily range): BP systolic 118–163; BP diastolic 56–90; PULSE 68–78; RESP 16–22; TEMP 97.3–98.9; O2SAT 90–98
[~2023-10-27] VITALS: Ht 167.6 cm; Wt 121.6 kg
[~2023-10-27 08:54] MED LIST changes: -FLUO20CA25 PO; +[UNRECOGNIZED DRUG - CODE] PO
[2023-10-27] MEDS ORDERED: ASPIRIN ONE (09:11)
[2023-10-27] MEDS: NITROSTAT SL PRN (09:14)
[2023-10-27] MEDS: ASPIRIN PO STA (09:14)
[2023-10-27 09:21] LABS: BASOPHIL # 0.1 10^3/uL (0.0-0.1); BASOPHIL % 0.4 % (0.0-0.2); EOSINOPHIL # 0.7 10^3/uL (0.0-0.2); EOSINOPHIL % 3.3 % (0.0-5.0); HEMOGLOBIN 12.5 g/dL (12.0-15.0); LYMPHOCYTES # 2.14 10^3/uL1 (1.0-4.8); LYMPHOCYTES % 9.6 % (24.0-44.0); MEAN CORP HGB 31.3 pg (26-34); MEAN CORP HGB CONCENTRATION 32.1 g/dL (33-36.5); MEAN CORP VOLUME 97.5 fL (78-100); NEUTROPHIL # 17.1 10^3/uL (1.8-7.7); PLATELET COUNT 429 10^3/uL (150-400); RED CELL DISTRIBUTION WIDTH 13.2 % (11.5-14.5); WHITE BLOOD CELL 22.2 10^3/uL (4.5-11.0)
[2023-10-27] MEDS ORDERED: CETI10TA77 PO (09:29)
[2023-10-27] MEDS ORDERED: SPIR50TA PO (09:29)
[2023-10-27] MEDS ORDERED: GABA600T7 PO (09:29)
[2023-10-27] MEDS ORDERED: DOXE10CA PO (09:29)
[2023-10-27 09:32] LABS: +ADD MANUAL DIFF(NO CHRG) NO
[2023-10-27 09:45] LABS: PROTHROMBIN PROTIME 10.9 SEC (9.7-11.6)
[2023-10-27 09:52] LABS: ALANINE AMINOTRANSFERASE(ML) 19 U/L (12-78); ALBUMIN/GLOBULIN RATIO 0.909; ALKALINE PHOSPHATASE 132 U/L (50-136); ANION GAP 11.1; ASPARTATE AMINO TRANSFERASE 10 U/L (0-35); CALCIUM 9.3 mg/dL (8.4-10.5); CARBON DIOXIDE 27.4 mmol/L (20.0-32); CREATINE KINASE 63 U/L (26-192); CREATININE SERUM 1.35 mg/dL (0.59-1.40); EST GFR, NON-AA 39.7 (>/=60); GLUCOSE 139 mg/dL (74-106); POTASSIUM 4.5 mmol/L (3.6-5.2); SODIUM 131 mmol/L (132-145)
[2023-10-27 09:53] LABS: TROPONIN I HIGH SENSITIVITY < 4 ng/L (0-50)
[2023-10-27] MEDS: NS 1000ML 1,000 ML IV STA (09:53)
[2023-10-27] MEDS ORDERED: NS 100ML 100 ML IV ONE ×3 (10:03→23:23)
[2023-10-27] MEDS ORDERED: NS 1000ML 1,000 ML ONE (10:03)
[2023-10-27] MEDS: ZOSYN 3.375 GM 3.375 GM in NS 100ML 100 ML IV STA (10:06)
[2023-10-27 10:16] LABS: BILIRUBIN,URINE NEGATIVE (NEGATIVE); LEUKOCYTE ESTERASE ,URINE NEGATIVE (NEGATIVE); NITRATE,URINE NEGATIVE (NEGATIVE); PH,URINE 5.5 (4.5-8.0); UROBILINOGEN,URINE 0.2 E.U./dL (0.2)
[2023-10-27 10:17] LABS: APPEARANCE,URINE CLEAR; UA COLOR YELLOW
[2023-10-27] MEDS ORDERED: VANCOMYCIN 1 GRAM/200 ML BAG 200 ML IV ONE (10:27)
[2023-10-27] MEDS: VANCOMYCIN HCL 1 GM in NS 250ML 250 ML IV STA (10:34)
[2023-10-27] MEDS ORDERED: SUBLIMAZE 100MCG/2ML ONE (10:36)
[2023-10-27] MEDS: SUBLIMAZE 100MCG/2ML IV STA (10:38)
[2023-10-27] MEDS: ZOSYN 3.375 GM 3.375 GM in NS 100ML 100 ML IV SCH (11:30)
[2023-10-27] MEDS: NS 1000ML/KCL 20MEQ 1,000 ML IV SCH (13:18)
[2023-10-27] MEDS: DURAGESIC TD SCH (13:18)
[2023-10-27] MEDS: BENADRYL PO STA (18:29)
[2023-10-27] MEDS: NEURONTIN PO SCH (20:34)
[2023-10-27] MEDS: FLEXERIL PO SCH (20:34)
[2023-10-27] MEDS: SINEQUIN PO SCH (20:34)
[2023-10-27] MEDS: ELIQUIS PO SCH (20:35)
[2023-10-27] MEDS: LOPRESSOR PO SCH (20:36)
[2023-10-27] MEDS: VANCOMYCIN 750 MG/150 ML BAG 150 ML IV SCH (20:37)
[2023-10-28] VITALS (7 sets, daily range): BP systolic 103–125; BP diastolic 49–74; PULSE 54–96; RESP 18; TEMP 97.1–98.4; O2SAT 95–99
[2023-10-28 04:35] LABS: BASOPHIL % 0.1 % (0.0-0.2); EOSINOPHIL # 0.8 10^3/uL (0.0-0.2); EOSINOPHIL % 4.7 % (0.0-5.0); HEMOGLOBIN 11.7 g/dL (12.0-15.0); LYMPHOCYTES # 0.98 10^3/uL1 (1.0-4.8); LYMPHOCYTES % 5.9 % (24.0-44.0); MEAN CORP HGB 31.1 pg (26-34); MEAN CORP HGB CONCENTRATION 31.6 g/dL (33-36.5); MEAN CORP VOLUME 98.4 fL (78-100); MONOCYTES # 1.5 10^3/uL (0.3-0.8); MONOCYTES % 8.9 % (5.0-12.0); NEUTROPHIL # 13.2 10^3/uL (1.8-7.7); NEUTROPHILS % 79.9 % (41.0-85.0); PLATELET COUNT 355 10^3/uL (150-400); RED BLOOD CELL 3.76 10^6/uL (4.00-5.20); RED CELL DISTRIBUTION WIDTH 13.3 % (11.5-14.5); WHITE BLOOD CELL 16.6 10^3/uL (4.5-11.0)
[2023-10-28 04:36] LABS: +ADD MANUAL DIFF(NO CHRG) NO
[2023-10-28 04:59] LABS: ALBUMIN(ML) 3.2 g/dL (3.4-5.0); ALBUMIN/GLOBULIN RATIO 0.82; ANION GAP 10.3; BUN/CREATININE RATIO 17.11 (10.0-20.0); CALCIUM 8.6 mg/dL (8.4-10.5); CARBON DIOXIDE 29.7 mmol/L (20.0-32); CREATININE SERUM 1.11 mg/dL (0.59-1.40); EST GFR, NON-AA 49.8 (>/=60)
[2023-10-28] MEDS ORDERED: NS 100ML 100 ML IV ONE ×3 (06:04→17:37)
[2023-10-28] MEDS: SYNTHROID PO SCH (06:08)
[2023-10-28] MEDS: BENADRYL PO PRN (07:10)
[2023-10-28] MEDS: LASIX IV SCH (09:00)
[2023-10-28] MEDS: ALDACTONE PO SCH (09:00)
[2023-10-28] MEDS: CLARITIN PO SCH (09:00)
[2023-10-28] MEDS: COZAAR PO SCH (09:00)
[2023-10-28] MEDS: CYMBALTA PO SCH (09:00)
[2023-10-28] MEDS: KLOR-CON 10 PO SCH (09:00)
[2023-10-28] MEDS ORDERED: NS 250ML 250 ML ONE (17:39)
[2023-10-29] VITALS (8 sets, daily range): BP systolic 84–140; BP diastolic 48–69; PULSE 57–71; RESP 14–18; TEMP 97.7–98.1; O2SAT 90–99
[2023-10-29] MEDS ORDERED: NS 100ML 100 ML IV ONE ×2 (00:04→05:48)
[2023-10-29 04:00] LABS: BASOPHIL % 0.1 % (0.0-0.2); EOSINOPHIL % 6.8 % (0.0-5.0); HEMATOCRIT(ML) 31.8 % (36.0-46.0); HEMOGLOBIN 10.5 g/dL (12.0-15.0); LYMPHOCYTES # 1.18 10^3/uL1 (1.0-4.8); LYMPHOCYTES % 8.1 % (24.0-44.0); MEAN CORP HGB 31.7 pg (26-34); MEAN CORP VOLUME 96.1 fL (78-100); MONOCYTES # 1.5 10^3/uL (0.3-0.8); MONOCYTES % 10.5 % (5.0-12.0); NEUTROPHIL # 10.7 10^3/uL (1.8-7.7); PLATELET COUNT 321 10^3/uL (150-400); RED BLOOD CELL 3.31 10^6/uL (4.00-5.20); RED CELL DISTRIBUTION WIDTH 13.1 % (11.5-14.5); WHITE BLOOD CELL 14.5 10^3/uL (4.5-11.0)
[2023-10-29 04:02] LABS: +ADD MANUAL DIFF(NO CHRG) NO
[2023-10-29] MEDS: TYLENOL PO STA (08:30)
[2023-10-29] MEDS ORDERED: METO-236 PO (09:38)
[2023-10-29] MEDS ORDERED: LOSA-399 PO (09:38)
[2023-10-29] MEDS ORDERED: SPIR25TA PO (09:41)
== END 2023-10-29 11:10 | disposition home or self-care (01) ==
LOC: ER 08:54 → OBS 10:26
PROVIDERS: ADMIT Specialist; ATTEND Specialist
DX: L03.115 Cellulitis of right lower limb (principal); L03.116 Cellulitis of left lower limb; D72.829 Elevated white blood cell count, unspecified; R07.89 Other chest pain; I11.0 Hypertensive heart disease with heart failure; I50.32 Chronic diastolic (congestive) heart failure; I48.0 Paroxysmal atrial fibrillation; N17.9 Acute kidney failure, unspecified; G89.4 Chronic pain syndrome; G47.33 Obstructive sleep apnea (adult) (pediatric); E03.9 Hypothyroidism, unspecified; Z91.040 Latex allergy status; Z79.01 Long term (current) use of anticoagulants; Z79.899 Other long term (current) drug therapy
CPT/HCPCS: 96367; 99291; 96365; 96366 ×3; 96361; 96375 ×2; 71045; 81003; 80053 ×2; 85025 ×3; 36415 ×3; 85379; 84484; 87040 ×2; 83605; 84145; 82553; 83880 ×2; 82550; 85610; 85730; 93005; 80202; G0378 ×48; J7050 ×2; J7030; Q0163 ×3; J8499 ×3; J2543 ×2; J3010; J3370; J3490 ×2; J1940 ×2; A9150

== ENCOUNTER → 2024-02-08 | Outpatient (CLI) | payer BC ==
[~2024-02-08] MED LIST changes: +AMOX1TAB60 PO; +CARV3.12 PO; +CETI10TA77 PO; +DOXE10CA PO; +GABA-1222 PO; +LOSA-399 PO; +METO-237 PO; -NAPR500T8 PO; +SPIR50TA PO; +[UNRECOGNIZED DRUG - CODE] PO
[2024-02-08 16:09] LABS: BASOPHIL % 0.3 % (0.1-1.2); EOSINOPHIL # 0.9 10^3/uL (0.0-0.2); EOSINOPHIL % 6.7 % (0.0-5.0); HEMATOCRIT(ML) 36.8 % (36.0-46.0); HEMOGLOBIN 11.5 g/dL (12.0-15.0); LYMPHOCYTES # 2.37 10^3/uL1 (1.0-4.8); LYMPHOCYTES % 17.2 % (24.0-44.0); MEAN CORP HGB CONCENTRATION 31.3 g/dL (33-36.5); MEAN CORP VOLUME 99.2 fL (78-100); MONOCYTES # 1.2 10^3/uL (0.3-0.8); NEUTROPHIL # 8.9 10^3/uL (1.8-7.7); NEUTROPHILS % 65.1 % (41.0-85.0); PLATELET COUNT 424 10^3/uL (150-400); RED BLOOD CELL 3.71 10^6/uL (4.00-5.20); RED CELL DISTRIBUTION WIDTH 13.6 % (11.5-14.5); WHITE BLOOD CELL 13.8 10^3/uL (4.5-11.0)
[2024-02-08 16:25] LABS: +ADD MANUAL DIFF(NO CHRG) NO
[2024-02-08 16:35] LABS: ALBUMIN(ML) 3.5 g/dL (3.4-5.0); ALBUMIN/GLOBULIN RATIO 0.777; ANION GAP 11.7; BUN/CREATININE RATIO 14.56 (10.0-20.0); CALCIUM 9.3 mg/dL (8.4-10.5); CARBON DIOXIDE 31.7 mmol/L (20.0-32); CREATININE SERUM 1.03 mg/dL (0.59-1.40); EST GFR, NON-AA 54.3 (>/=60); POTASSIUM 4.4 mmol/L (3.6-5.2)
== END | disposition home or self-care (01) ==
LOC: LAB 15:56
PROVIDERS: ATTEND Specialist
DX: I11.0 Hypertensive heart disease with heart failure (principal); I50.32 Chronic diastolic (congestive) heart failure; I48.0 Paroxysmal atrial fibrillation
CPT/HCPCS: 36415; 80053; 85025

== ENCOUNTER 2024-02-26 10:03 | Emergency (ER) | payer BC ==
[~2024-02-26] VITALS: Ht 167.6 cm; Wt 113.4 kg
[2024-02-26 10:03] VITALS: BP 119/46; PULSE 78; RESP 18; TEMP 97.5; O2SAT 93
[2024-02-26] MEDS ORDERED: TORADOL ONE (10:38)
[2024-02-26] MEDS: TORADOL IM ONE (10:43)
[2024-02-26 10:52] LABS: BASOPHIL # 0.1 10^3/uL (0.0-0.1); BASOPHIL % 0.5 % (0.1-1.2); EOSINOPHIL # 0.9 10^3/uL (0.0-0.2); EOSINOPHIL % 8.5 % (0.0-5.0); HEMATOCRIT(ML) 38.1 % (36.0-46.0); HEMOGLOBIN 11.9 g/dL (12.0-15.0); LYMPHOCYTES % 21.5 % (24.0-44.0); MEAN CORP HGB 30.9 pg (26-34); MEAN CORP HGB CONCENTRATION 31.2 g/dL (33-36.5); MONOCYTES % 9.3 % (5.0-12.0); NEUTROPHIL # 6.1 10^3/uL (1.8-7.7); NEUTROPHILS % 59.9 % (41.0-85.0); PLATELET COUNT 365 10^3/uL (150-400); RED BLOOD CELL 3.85 10^6/uL (4.00-5.20); RED CELL DISTRIBUTION WIDTH 13.1 % (11.5-14.5); WHITE BLOOD CELL 10.2 10^3/uL (4.5-11.0)
[2024-02-26 10:59] LABS: +ADD MANUAL DIFF(NO CHRG) NO
[2024-02-26 11:12] LABS: ALANINE AMINOTRANSFERASE(ML) 19 U/L (12-78); ALBUMIN(ML) 3.5 g/dL (3.4-5.0); ALKALINE PHOSPHATASE 106 U/L (50-136); ANION GAP 8.8; ASPARTATE AMINO TRANSFERASE 15 U/L (0-35); C-REACTIVE PROTEIN 0.64 mg/dL (0.00-5.00); CALCIUM 9.1 mg/dL (8.4-10.5); CARBON DIOXIDE 33.9 mmol/L (20.0-32); CREATININE SERUM 1.14 mg/dL (0.59-1.40); EST GFR, NON-AA 48.3 (>/=60); GLUCOSE 125 mg/dL (74-106); POTASSIUM 3.7 mmol/L (3.6-5.2); SODIUM 138 mmol/L (132-145)
[2024-02-26 11:16] LABS: TROPONIN I HIGH SENSITIVITY < 4 ng/L (0-50)
[2024-02-26 11:28] VITALS: BP 114/55; PULSE 63; RESP 18; TEMP 97.5; O2SAT 93
[2024-02-26] MEDS ORDERED: AMOX1TAB12 PO (11:29)
== END 2024-02-26 11:32 | disposition home or self-care (01) ==
LOC: ER 10:03
DX: L03.115 Cellulitis of right lower limb (principal); L03.116 Cellulitis of left lower limb; I50.9 Heart failure, unspecified; E07.9 Disorder of thyroid, unspecified; E66.01 Morbid (severe) obesity due to excess calories; I87.2 Venous insufficiency (chronic) (peripheral); Z90.710 Acquired absence of both cervix and uterus; Z88.5 Allergy status to narcotic agent; Z91.040 Latex allergy status; Z79.01 Long term (current) use of anticoagulants
CPT/HCPCS: 99284; 96372; 80053; 85025; 36415; 84484; 84145; 83880; 86140; 93005; J1885

== ENCOUNTER 2024-05-27 21:39 | Observation (INO) | payer BC ==
[~2024-05-27] VITALS: Ht 170.2 cm; Wt 124.9 kg
[~2024-05-27 21:39] MED LIST changes: +AMIO200T55 PO; +AMOX1TAB12 PO
[2024-05-27 22:06] VITALS: BP 155/76; PULSE 90; RESP 30; TEMP 102.9; O2SAT 89
[2024-05-27] MEDS ORDERED: NS 1000ML 1,000 ML ONE (22:14)
[2024-05-27] MEDS ORDERED: OFIRMEV 1000 MG/100 ML 100 ML IV ONE (22:14)
[2024-05-27] MEDS: NS 1000ML 1,000 ML IV STA (22:22)
[2024-05-27] MEDS: OFIRMEV 1000 MG/100 ML 100 ML IV STA (22:22)
[2024-05-27 22:39] LABS: BASOPHIL % 0.2 % (0.1-1.2); EOSINOPHIL # 0.1 10^3/uL (0.0-0.2); EOSINOPHIL % 0.4 % (0.0-5.0); HEMATOCRIT(ML) 35.7 % (36.0-46.0); HEMOGLOBIN 11.6 g/dL (12.0-15.0); LYMPHOCYTES % 5.5 % (24.0-44.0); MEAN CORP HGB 31.3 pg (26-34); MEAN CORP HGB CONCENTRATION 32.5 g/dL (33-36.5); MEAN CORP VOLUME 96.2 fL (78-100); MONOCYTES # 1.9 10^3/uL (0.3-0.8); MONOCYTES % 8.9 % (5.0-12.0); NEUTROPHIL # 18.5 10^3/uL (1.8-7.7); NEUTROPHILS % 84.7 % (41.0-85.0); PLATELET COUNT 319 10^3/uL (150-400); RED BLOOD CELL 3.71 10^6/uL (4.00-5.20); RED CELL DISTRIBUTION WIDTH 13.3 % (11.5-14.5); WHITE BLOOD CELL 21.8 10^3/uL (4.5-11.0)
[2024-05-27 22:46] LABS: BILIRUBIN,URINE NEGATIVE (NEGATIVE); LEUKOCYTE ESTERASE ,URINE NEGATIVE (NEGATIVE); NITRATE,URINE NEGATIVE (NEGATIVE); UROBILINOGEN,URINE 0.2 E.U./dL (0.2)
[2024-05-27 22:51] LABS: +ADD MANUAL DIFF(NO CHRG) NO; INFLUENZA VIRUS A ANTIGEN NEGATIVE (NEG); INFLUENZA VIRUS B ANTIGEN NEGATIVE (NEG)
[2024-05-27 22:57] LABS: UA COLOR YELLOW
[2024-05-27 22:58] LABS: APPEARANCE,URINE CLEAR
[2024-05-27] MEDS: VANCOMYCIN 2 GRAM/400 ML BAG 400 ML IV STA (23:01)
[2024-05-27 23:03] LABS: TROPONIN I HIGH SENSITIVITY 5 ng/L (0-50)
[2024-05-27 23:14] LABS: ALBUMIN(ML) 3.7 g/dL (3.4-5.0); ALBUMIN/GLOBULIN RATIO 0.84; ANION GAP 12.3; BUN/CREATININE RATIO 8.82 (10.0-20.0); C-REACTIVE PROTEIN 1.88 mg/dL (0.00-5.00); CARBON DIOXIDE 27.7 mmol/L (20.0-32); CREATININE SERUM 1.36 mg/dL (0.59-1.40); EST GFR, NON-AA 39.4 (>/=60)
[2024-05-27] MEDS ORDERED: NS 500ML 500 ML IV ONE (23:23)
[2024-05-27] MEDS ORDERED: NS 100ML 100 ML IV ONE (23:23)
[2024-05-27] MEDS ORDERED: VANCOMYCIN HCL 2 GM ONE (23:23)
[2024-05-27] MEDS: ZOSYN 3.375 GM 3.375 GM in NS 100ML 100 ML IV STA (23:39)
[2024-05-28] VITALS (10 sets, daily range): BP systolic 116–147; BP diastolic 56–74; PULSE 61–90; RESP 18–22; TEMP 97.3–99; O2SAT 91–100
[2024-05-28] MEDS ORDERED: NS 100ML 100 ML IV ONE ×3 (10:50→22:13)
[2024-05-28] MEDS ORDERED: NS 250ML 250 ML ONE (10:50)
[2024-05-28] MEDS: ZOSYN 3.375 GM 3.375 GM in NS 100ML 100 ML IV SCH (10:53)
[2024-05-28] MEDS: DURAGESIC 25MCG TD SCH (11:38)
[2024-05-28] MEDS: TYLENOL PO PRN (14:34)
[2024-05-28] MEDS: VANCOMYCIN 750 MG/150 ML BAG 150 ML IV SCH (20:42)
[2024-05-28] MEDS: FLEXERIL PO SCH (20:43)
[2024-05-28] MEDS: COREG PO SCH (20:43)
[2024-05-28] MEDS: NEURONTIN PO SCH (20:43)
[2024-05-28] MEDS: SINEQUIN PO SCH (20:43)
[2024-05-28] MEDS: ELIQUIS PO SCH (20:43)
[2024-05-28] MEDS: ZOFRAN ODT SL PRN (22:18)
[2024-05-29] VITALS (8 sets, daily range): BP systolic 101–135; BP diastolic 52–59; PULSE 60–82; RESP 16–18; TEMP 97.2–98.2; O2SAT 90–100
[2024-05-29] MEDS ORDERED: NS 100ML 100 ML IV ONE ×4 (04:45→22:56)
[2024-05-29] MEDS ORDERED: SYNTHROID ONE (05:25)
[2024-05-29] MEDS: SYNTHROID PO SCH (05:30)
[2024-05-29 05:53] LABS: BASOPHIL % 0.2 % (0.1-1.2); EOSINOPHIL # 0.5 10^3/uL (0.0-0.2); EOSINOPHIL % 3.9 % (0.0-5.0); HEMATOCRIT(ML) 33.6 % (36.0-46.0); HEMOGLOBIN 10.7 g/dL (12.0-15.0); LYMPHOCYTES # 0.86 10^3/uL1 (1.0-4.8); LYMPHOCYTES % 6.6 % (24.0-44.0); MEAN CORP HGB CONCENTRATION 31.8 g/dL (33-36.5); MEAN CORP VOLUME 97.4 fL (78-100); MONOCYTES # 1.4 10^3/uL (0.3-0.8); MONOCYTES % 10.8 % (5.0-12.0); NEUTROPHIL # 10.2 10^3/uL (1.8-7.7); NEUTROPHILS % 78.3 % (41.0-85.0); PLATELET COUNT 227 10^3/uL (150-400); RED BLOOD CELL 3.45 10^6/uL (4.00-5.20); RED CELL DISTRIBUTION WIDTH 13.7 % (11.5-14.5); WHITE BLOOD CELL 13.1 10^3/uL (4.5-11.0)
[2024-05-29 06:01] LABS: +ADD MANUAL DIFF(NO CHRG) NO
[2024-05-29 06:15] LABS: ALBUMIN(ML) 2.9 g/dL (3.4-5.0); ALBUMIN/GLOBULIN RATIO 0.743; ANION GAP 9.5; BUN/CREATININE RATIO 13.04 (10.0-20.0); CALCIUM 9.1 mg/dL (8.4-10.5); CREATININE SERUM 1.15 mg/dL (0.59-1.40); EST GFR, NON-AA 47.8 (>/=60); POTASSIUM 3.5 mmol/L (3.6-5.2)
[2024-05-29] MEDS ORDERED: KLOR-CON 10 PO ONE (07:51)
[2024-05-29] MEDS ORDERED: CLARITIN ONE (07:51)
[2024-05-29] MEDS ORDERED: CYMBALTA ONE (07:51)
[2024-05-29] MEDS ORDERED: DEMADEX PO ONE (07:52)
[2024-05-29] MEDS ORDERED: ALDACTONE ONE (07:52)
[2024-05-29] MEDS ORDERED: COZAAR ONE (07:55)
[2024-05-29] MEDS: KLOR-CON 10 PO SCH (07:55)
[2024-05-29] MEDS: CYMBALTA PO SCH (07:56)
[2024-05-29] MEDS: CLARITIN PO SCH (07:56)
[2024-05-29] MEDS: ALDACTONE PO SCH (07:56)
[2024-05-29] MEDS: DEMADEX PO SCH (07:56)
[2024-05-29] MEDS: COZAAR PO SCH (07:58)
[2024-05-29] MEDS ORDERED: AMIO200T55 PO (09:51)
[2024-05-30] VITALS: BP 108/64; PULSE 59; RESP 16; TEMP 97.3; O2SAT 99
[2024-05-30 04:10] VITALS: BP 115/57; PULSE 61; RESP 16; TEMP 97.3; O2SAT 98
[2024-05-30] MEDS ORDERED: NS 100ML 100 ML IV ONE ×2 (04:16→11:51)
[2024-05-30 08:00] VITALS: BP 123/36; PULSE 60; RESP 20; TEMP 97.9; O2SAT 100
[2024-05-30 09:47] VITALS: O2SAT 98
[2024-05-30] MEDS ORDERED: MECL-213 PO (11:01)
[2024-05-30 11:19] VITALS: BP 104/63; PULSE 57; RESP 20; TEMP 97.5; O2SAT 98
[2024-05-30 14:28] VITALS: BP 104/63; PULSE 57; RESP 20; TEMP 97.5; O2SAT 97
== END 2024-05-30 14:24 | disposition home or self-care (01) ==
LOC: ER 21:39 → OBS 23:37 → UNDOADMOB 23:37 → INTOOBSV 23:37 → MS 23:37
PROVIDERS: ADMIT Specialist; ATTEND Specialist
DX: L03.115 Cellulitis of right lower limb (principal); Z20.822 Contact with and (suspected) exposure to COVID-19; L03.116 Cellulitis of left lower limb; A41.9 Sepsis, unspecified organism; R65.20 Severe sepsis without septic shock; I11.0 Hypertensive heart disease with heart failure; I50.9 Heart failure, unspecified; D72.829 Elevated white blood cell count, unspecified; G93.41 Metabolic encephalopathy; R60.0 Localized edema; I48.0 Paroxysmal atrial fibrillation; R42 Dizziness and giddiness; E78.00 Pure hypercholesterolemia, unspecified; F11.90 Opioid use, unspecified, uncomplicated; G89.4 Chronic pain syndrome; Z88.5 Allergy status to narcotic agent; Z91.040 Latex allergy status; Z79.899 Other long term (current) drug therapy; Z79.01 Long term (current) use of anticoagulants
CPT/HCPCS: 96367; 96365; 96368; 99285; 71045; 81003; 87426; 80053 ×2; 85025 ×2; 36415 ×3; 84484; 87040 ×2; 83605; 84145; 87804 ×2; 83880 ×2; 86140; 93005; 96366 ×3; 80202; J7040; J7030; J0131; J2543 ×2; J3370; G0378 ×63; J7050; J3490 ×3; J8499 ×2; A6456; A6258; 96374

== ENCOUNTER 2024-07-15 08:08 | Emergency (ER) | payer BC ==
[~2024-07-15 08:08] MED LIST changes: +MECL-213 PO
[2024-07-15] MEDS ORDERED: DULO60CA8 PO (19:14)
[2024-07-21] MEDS ORDERED: CARV6.252 PO (10:06)
[2024-07-21] MEDS ORDERED: SPIR25TA PO (10:06)
[2024-07-21] MEDS ORDERED: EMPA10TA PO (10:06)
[2024-07-21] MEDS ORDERED: AMOX1TAB12 PO (10:06)
== END 2024-07-15 11:41 | disposition admitted as inpatient to this hospital (09) ==
LOC: ER 08:08
DX: A41.9 Sepsis, unspecified organism (principal); I50.33 Acute on chronic diastolic (congestive) heart failure; L03.116 Cellulitis of left lower limb; I48.0 Paroxysmal atrial fibrillation; I11.0 Hypertensive heart disease with heart failure; E66.01 Morbid (severe) obesity due to excess calories; E78.00 Pure hypercholesterolemia, unspecified; G47.00 Insomnia, unspecified; G47.33 Obstructive sleep apnea (adult) (pediatric); Z79.899 Other long term (current) drug therapy
CPT/HCPCS: 99291; 96365; 96366; 96368; 71045; 80053; 85025; 36415; 84484; 87040 ×2; 83605; 84145; 83880; 93005; J7030; J0131; J2405; J2543

== ENCOUNTER → 2025-04-07 | Outpatient (CLI) | payer BC ==
[~2025-04-07] MED LIST changes: -AMIO200T55 PO; +AMIO200T60 PO; +CARV6.252 PO; +DULO60CA8 PO; +EMPA10TA PO
== END | disposition home or self-care (01) ==
LOC: RAD 13:50
PROVIDERS: ATTEND Nurse Practitioner
DX: M17.0 Bilateral primary osteoarthritis of knee (principal); M25.561 Pain in right knee; M25.562 Pain in left knee; M25.762 Osteophyte, left knee; M25.761 Osteophyte, right knee
CPT/HCPCS: 73560